=== PATIENT | female | born 1990 | race Caucasian/White ===

== ENCOUNTER 2025-01-07 10:06 | Emergency (ER) | payer OTHER, SELFPAY ==
[2025-01-07] VITALS (10 sets, daily range): BP systolic 106–125; BP diastolic 56–84; PULSE 54–102; RESP 11–22; TEMP 36.7; O2SAT 94–100
--- NOTE | ~2025-01-07 | XR_ITS ---
EXAMINATION: XR chest 2V DATE: 01/07/2025 11:48 INDICATION: Chest pain. TECHNIQUE: Frontal and lateral views of the chest were obtained. COMPARISON: None. FINDINGS: There is no pneumonia, pleural effusion, or pneumothorax. The heart size is normal. IMPRESSION: 1. No acute cardiopulmonary disease. Reviewed, dictated and finalized at location B.
--- NOTE | 2025-01-07 10:08 | ECG_ITS ---
Test Date: 2025-01-07 10:13:18 Measurements Intervals Anderson Rate: 102 P: 44 CO: 128 QRS: 50 QRSD: 90 T: 5 QT: 372 QTc: 485 Interpretive Statements SINUS TACHYCARDIA NONSPECIFIC T-WAVE ABNORMALITY ABNORMAL RHYTHM ECG No previous ECG available for comparison Electronically Signed On 01-07-2025 11:52:27 CDT by Rl Hernandez M.D.
[2025-01-07] MEDS: ASPIRIN 81 MG CHEWABLE TABLET 324 MG PO (10:54)
--- NOTE | 2025-01-07 10:56 | ED_ITS ---
HPI - Chest Pain General Chief Complaint: Chest Pain Stated Complaint: chest pressure Time Seen by Provider: 01/07/25 10:34 Source: patient Mode of arrival: ambulatory Limitations: no limitations History of Present Illness HPI narrative: This is a 34-year-old female that presents to the emergency department for chest pain, shortness of breath. Ongoing intermittently over the last week. Denies fever, cough, lower extremity edema. Related Data Allergies Allergy/AdvReac Type Severity Reaction Status Date / Time No Known Allergies Allergy Verified 01/07/25 10:58 Review of Systems 2 Review of Systems: CONSTITUTIONAL: Denies fever CARDIOVASCULAR: Reports chest pain RESPIRATORY: Reports dyspnea. All systems reviewed & are unremarkable except as noted in HPI and below PMFSH Past Medical History Medical History Allergies Gestational diabetes Surgical History Surgical History Delivery by section of full-term infant H/O eye surgery Family History Family History Father Depression Sibling Depression Grandparent Asthma Hypertension Cerebrovascular accident Alcoholism Cancer of unknown origin Social History Social History Smoking status: Never smoker Alcohol intake: current Drinks per week: 3 Lack of Transportation: No Lack of Food: Never True Current Housing: I Have Housing Concerned About Future Housing: No Difficulty Paying Gas/Electric Bills: No Difficulty Paying for Meds: No Currently Unemployed: No Education: Master's Degree or Higher Difficulty w/ Childcare or Family Care: No Living arrangements: with family Occupation/Education: occupation Spiritual care concerns: No Agree to blood products: Yes Exam 2 Narrative: GENERAL: Well-appearing, well-nourished, and in no acute distress. HEAD: Normocephalic, atraumatic. EYES: EOMI. CHEST: Clear to auscultation. No respiratory distress. No wheezes rales or rhonchi HEART: Regular rate and rhythm. No murmur heard. Normal peripheral pulses. EXTREMITIES: Normal range of motion. No edema. SKIN: Warm, dry, no rash. NEURO: No focal deficits. Alert and oriented x3. PSYCH: Normal mood and affect Course Course Emergency Course: Patient updated on her workup. Resting comfortably Vital Signs Vital signs: Vital Signs Temperature 98.0 F 01/07/25 10:14 Pulse Rate 102 H 01/07/25 10:14 Respiratory Rate 18 01/07/25 10:14 Blood Pressure 125/84 01/07/25 10:14 Pulse Oximetry 98 01/07/25 10:14 Temperature 98.1 F 01/07/25 11:01 Pulse Rate 56 L 01/07/25 12:30 Respiratory Rate 11 L 01/07/25 12:30 Blood Pressure 106/66 01/07/25 11:31 Pulse Oximetry 100 01/07/25 12:30 Oxygen Delivery Room Air 01/07/25 11:00 MDM - Chest Pain MDM Narrative Medical decision making narrative: Patient presents the emergency department for chest pain. Ongoing intermittently over the last week. Tachycardic upon arrival, this normalized without intervention. CBC and metabolic panel without concerning findings. EKG without acute ST changes and baseline and 3 hour troponin are negative. D-dimer is not elevated. Chest x-ray without acute cardiopulmonary abnormality. Heart score is 1. Patient updated on her workup. Resting comfortably. She is to follow up with PCP. She was given warnings to return to the ER Differential Diagnosis Differential diagnosis: Likely stable angina, atypical chest pain, costochondritis and other (pneumonia, PE) Lab Data Attestation: I reviewed the patient's lab results. 01/07/25 10:57 01/07/25 10:57 Labs: Lab Results 01/07/25 01/07/25 Range/Units 10:57 12:59 WBC 6.1 (4.5-10.0) K/mm3 RBC 4.74 (4.2-5.4) M/mm3 Hgb 14.0 (12.0-15.0) g/dL Hct 42.1 (37.0-47.0) % MCV 88.8 (80-100) fl MCH 29.5 (26-34) pg MCHC 33.3 (32-36) g/dl RDW 12.8 (11.5-14.5) % Plt Count 209 (150-375) k/mm3 MPV 10.0 (7.4-10.4) fl Immature Gran % (Auto) 0.2 (0-0.5) % Neut % (Auto) 56.1 (45.5-73.1) % Lymph % (Auto) 33.7 (18.3-44.2) % Brown % (Auto) 7.3 (2.6-8.5) % Eos % (Auto) 1.7 (0-4.4) % Baso % (Auto) 1.0 (0.2-1.2) % Lymph # (Auto) 2.04 (0.9-3.2) K/mm3 Brown # (Auto) 0.4 (0.1-0.6) K/mm3 Eos # (Auto) 0.1 (0-0.3) K/mm3 Baso # (Auto) 0.1 (0.0-0.1) K/mm3 Abs Immat Gran (auto) 0.01 (0.00-0.031) K/mm3 Absolute Neuts (auto) 3.4 (1.3-6.7) K/mm3 Absolute Nucleated RBC 0.000 (0.0-0.012) K/mm3 Nucleated RBC % 0.0 (0.0-0.2) % PT 12.7 (11.1-14.7) Seconds INR 0.9 APTT 24.4 (22.3-36.8) Seconds D-Dimer < 0.27 (<0.48) ug/mL Sodium 140 (137-145) mmol/L Potassium 4.4 (3.4-5.0) mmol/L Chloride 106 (98-107) mmol/L Carbon Dioxide 25 (22-30) mmol/L Anion Gap 9 (4-12) mmol/L BUN 10 (7-17) mg/dL Creatinine 0.74 (0.7-1.0) mg/dL Estim Creat Clear Calc 101 ml/min Estimated GFR > 60 (59 - ) Glucose 91 (65-110) mg/dL Calcium 9.3 (8.4-10.2) mg/dL Total Bilirubin 0.3 (0.2-1.3) mg/dL AST 26 (14-36) U/L ALT 35 (6-35) U/L Alkaline Phosphatase 50 (38-126) U/L Troponin I < 0.012 < 0.012 (0.000-0.034) ng/mL Total Protein 8.0 (6.3-8.2) g/dL Albumin 4.5 (3.5-5.1) g/dL Lipase 99 (23-300) U/L Imaging Data Radiologist's impression: ITS Impressions Chest X-Ray 01/07/25 11:51 IMPRESSION: 1. No acute cardiopulmonary disease. ECG Data EKG #1: ECG completion date: 01/07/25 EKG Interpretation: tachycardia, sinus rhythm, no ST changes and normal QT Critical Care Time Critical Care Time Critical Care Time: No Discharge Plan Discharge Clinical Impression: Chest pain Qualifiers: Chest pain type: unspecified Qualified Code(s): R07.9 - Chest pain, unspecified Patient Disposition: Home, Self-Care Condition: Stable Instructions: Chest Pain (ED) Additional Instructions: Return to the emergency department if you experience fever, worsening chest pain, shortness of breath, abdominal pain with nausea and vomiting, weakness, numbness, or any other symptoms that are concerning to you. Follow up with your primary care doctor Patient Language: Romanian Prescriptions: No Action amoxicillin-pot clavulanate [Augmentin] 500-125 mg tablet 1 tablet PO TID Qty: 21 0RF fluticasone furoate 27.5 mcg/actuation spray,suspension 2 spray intranasal DAILY Qty: 1 0RF Rx Instructions: into each nostril Follow-up/Referrals: Sameera,SAI Mei [Primary Care Provider] - Quality HEART score for chest pain patients History: slightly suspicious ECG: normal Age: < or = to 45 years Risk factors: 1 or 2 risk factors Troponin: < or = to 1x normal limit Heart score: 1
[2025-01-07 11:10] LABS: Basophils Absolute Auto 0.1 K/mm3 (0.0-0.1); Eosinophils Absolute Auto 0.1 K/mm3 (0-0.3); Eosinophils Percent Auto 1.7 % (0-4.4); Hematocrit 42.1 % (37.0-47.0); Immature Granulocyte Absolute 0.01 K/mm3 (0.00-0.031); Immature Granulocyte Percent A 0.2 % (0-0.5); Lymphocytes Absolute Auto 2.04 K/mm3 (0.9-3.2); Lymphocytes Percent Auto 33.7 % (18.3-44.2); Mean Corpuscular HGB Conc 33.3 g/dl (32-36); Mean Corpuscular Hemoglobin 29.5 pg (26-34); Mean Corpuscular Volume 88.8 fl (80-100); Monocytes Absolute Auto 0.4 K/mm3 (0.1-0.6); Monocytes Percent Auto 7.3 % (2.6-8.5); Neutrophils Absolute Auto 3.4 K/mm3 (1.3-6.7); Neutrophils Percent Auto 56.1 % (45.5-73.1); Platelet Count Result 209 k/mm3 (150-375); Red Blood Count 4.74 M/mm3 (4.2-5.4); Red Cell Distribution Width 12.8 % (11.5-14.5); White Blood Count 6.1 K/mm3 (4.5-10.0)
[2025-01-07 11:20] LABS: Alanine Aminotransferase 35 U/L (6-35); Albumin Level 4.5 g/dL (3.5-5.1); Alkaline Phosphatase 50 U/L (38-126); Anion Gap 9 mmol/L (4-12); Aspartate Amino Transferase 26 U/L (14-36); Bilirubin,Total 0.3 mg/dL (0.2-1.3); Blood Urea Nitrogen 10 mg/dL (7-17); Calcium 9.3 mg/dL (8.4-10.2); Carbon Dioxide 25 mmol/L (22-30); Chloride 106 mmol/L (98-107); Estimated CRCL calculation 101 ml/min; Estimated Glomerular Filt Rate > 60; Glucose 91 mg/dL (65-110); Lipase 99 U/L (23-300); Potassium 4.4 mmol/L (3.4-5.0); Sodium 140 mmol/L (137-145)
[2025-01-07 11:23] LABS: INR 0.9; Prothrombin Time 12.7 Seconds (11.1-14.7)
[2025-01-07 11:24] LABS: Partial Thromboplastin Time 24.4 Seconds (22.3-36.8)
[2025-01-07 11:32] LABS: Troponin I < 0.012 ng/mL (0.000-0.034)
--- OUTSIDE RECORDS SUMMARY | 2025-01-07 11:48 | XMS_ITS | Data Portability ---
Author Organization [place] - [facility] - [facility] [place] Address [address] [place] [address] Assessment No assessment recorded. Plan of Treatment Reminders Order Date Submit Date Provider Last Modified By Organization Details Last Modified Time Details Appointments None recorded. Lab SARS CoV 2 RNA (COVID-19), QL, draw frame operator-PCR, respiratory specimen 2020 021 [facility], [address], [place], [address], 22:56:20 rapid SARS CoV 2 Ag, QL IA, respiratory specimen 2020 021 [facility], [address] [place], [address], 19:05:40 Referral None recorded. Procedures None recorded. Surgeries None recorded. Imaging None recorded. Medication Orders None recorded. Patient TargetsNo targets recorded. Patient Instructions Encounter Date Encounter Id Patient Instructions Last Modified By Organization Details Last Modified Time 01/29/2021 [id number] - Specimen for COVID-19 PCR test sent to lab. - For patients with exposure and/or symptoms: you are to be self quarantined until PCR results have been reported. - Keep in mind that IF you had a rapid COVID-19 test performed today due to exposure and/or symptoms, and that test is negative, you still must continue to quarantine until the PCR results have been reported. We are unable to rule-out COVID-19 with a rapid test. - If you have symptoms, stay hydrated and rest, use cool mist humidifier, and take [id number] Tylenol/acetamino phen as needed for fever/pain (follow instructions on medication packaging) - Wash hands frequently and avoid touching the face; wear a mask when in public or when around people who do not live in your household (masks should not be worn by children under 2 years of age, or anyone who has trouble breathing, is unconscious, incapacitated, or otherwise unable to remove the mask without assistance) - Go to the ER if you are experiencing difficulty breathing, coughing up blood, chest pain, fever not improved with Tylenol/acetamino phen, or any other concerning symptoms - If you test positive for COVID-19 via Rapid OR PCR, please quarantine for at least 10 days from the date of testing. - If you have been in close contact with someone who tested positive for COVID-19, you should quarantine for 2 weeks from your last date of contact with that person. [email or web address] Not available 01/29/2021 18:18:38 Reason for Referral None Reported. Results Created Date Observation Date Name Description Value Unit Range Abnormal Flag Note LastModifiedBy Organization Detail LastModifiedTime 01/30/20 21 01/29/2021 SARS CoV 2 RNA (COVI D-19) , QL, draw frame operator-P CR, respi rator y speci men [id number] CR Not Detect ed normal Not Available [facility] [address], [place], [address], 01/30/2021 22:56:20 01/30/20 21 01/29/2021 rapid SARS CoV 2 Ag, QL IA, respi rator y speci men Unknown Analyte Negati ve Not Available [facility] [address] [place], [address], 01/29/2021 18:19:55 Result Notes None recorded. Medical Equipment None Reported. Vitals Date Recorded Heart rate Oxygen saturation Oxygen saturation in Arterial blood by Pulse oximetry Body temperature Provider Name and Address Organization Details Last Updated DateTime 01/29/2021 67 /min 98 % 98 % 97.4 [degF] Elda WEBSTER - [facility] 18:18:37 Social History None recorded. Functional Status None recorded. Mental Status None recorded. Family History Nothing Reported. Medical History No medical history recorded. Gynecological HistoryNo gynecological history recorded. Obstetrics History GPAL:G 0 P 0 0 0 0 Past Encounters Encounter ID Performer Location Encounter Start Date Encounter Closed Date Diagnosis/Indication Diagnosis SNOMED-CT Code Diagnosis ICD10 Code Diagnosis Note [id number] [facility] [address] [place] [address] 01/29/2021 18:09:23 02/10/2021 01:19:53 Suspected COVID-19 558972530 Z03.818 Exposure t o SARS-CoV-2 485871044 Z20.828 Health Concerns Section Related Observation LastModified by Organization Detai ls LastModified Time None Recorded Concern Status LastModified by Organization Details LastModified Time None Recorded Advance Directives Directive None Recorded Payers Encounter Date Sequence Insurance Name Policy Number Policy Toro Covered Member ID Toro Member ID Guarantor Name 01/29/2021 1 [facility] [employer]NAG[employer] - DEMETRICE Cifuentes [id number] Smita Cifuentes Notes Date Note Type Note Provider Name and Address Organization Details Recorded Time 01/29/2021 text/html Patient presents for rapid and PCR COVID-19 testing. Pt reports chills, cough and excessive fatigue for one day. Pt reports potential exposure/ Patient denies fevers, sore throat, SOB, chest tightness, myalgia, HAs, N/V/D, anosmia, ageusia, within the past 14 days. Exposure?: n No other active complaints reported. [facility] 01/29/2021 18:20:01 OBGyn Episode No OBEpisode recorded.
--- OUTSIDE RECORDS SUMMARY | 2025-01-07 11:48 | XMS_ITS | Clinical Summary ---
Author Organization [address] Address [address] [place] [address] Care Team Providers Care Environmental Compliance Manager Name Role Phone Unknown, Notinfile Unavailable Unavailable Katie Brasher NP Primary Care Provider [phone] Allergies No known active allergies Medications calcium carbonate-vitam in D3 1500 mg (600 mg elemental) -200 units per tablet Take 1 tablet by mouth daily Active omega-3 fatty acids-fish oil 300-1,000 mg capsule Take 2 capsules (2 g total) by mouth daily Active cyanocobalamin (Vitamin B-12) 1,000 mcg sublingual tablet Take 1 tablet (1,000 mcg total) by mouth daily Active 25/iron fum/folic/dha (-1 ORAL) Take by mouth Active levonorgestreL (MIRENA) IUD 1 each by intrauterine route once Mirena [facility]: 42751-612-45 Lot:[id number] Exp: Dec 2024 3 01/26/20 31 Active multivitamin tabletIndicatio ns:Vitamin Deficiency Prevention Take 1 tablet by mouth Active semaglutide (Wegovy) 1 mg/0.5 mL auto-injectorIn dications:Weigh t Loss Management for Obese Patient (BMI >= 30) Inject 0.5 mL (1 mg total) under the skin every 7 days 2 mL 4 Active Additional Information Patient not taking.Reported on 01/04/2025 Active Problems Problem Noted Date Diagnosed Date History of gestational diabetes 06/29/2024 Assessment & Plan (07/05/2024 8:46 AM CDT): This has been diet controlled. We will recheck hemoglobin A1c with labs today Annual physical exam 06/29/2024 Assessment & Plan (07/05/2024 8:46 AM CDT): -Recommended: Healthy diet. Avoiding junk food/fast food. -30 minutes of exercise most days of the week. Increase to 45 minutes for weight loss. Health Maintenance reviewed - yearly labs ordered. -Influenza vaccine every year Recommend: - Topic Date Due Varicella Vaccines (1 of 2 - 13+ 2-dose series) Never done -F/u in 1 year for Annual PE or sooner if needed Class 2 obesity due to exces s calories without serious comorbidity with body mass index (BMI) of 35.0 to 35.9 in adult 06/29/2024 Assessment & Plan (10/12/2024 8:36 PM FURNACE HELPER): She was not aware that wegovy had a coupon to use with her insurance. If that brings her co-pay down she will go ahead and try it again. Will increase to 1 mg at next refill. She will send a [employer] message left he has no how it goes Assessment & Plan (07/05/2024 8:48 AM CDT): Today we discussed weight loss medications wegovy. We will try for prior auth for wegovy. I went over injection methods with her. Will have her return in 1 month for continued weight loss counseling, weigh in and f/u I gave her 1 by sample Wegovy 0.25 mg weekly which equals a one-month supply with with teaching done on administration. She believes that she had seen a letter from her insurance stating that they will cover these medications. Dichorionic diamniotic twin in second trimester 09/27/2022 Resolved Problems Problem Noted Date Diagnosed Date Resolved Date premature rupture of membranes in third trimester 12/16/2022 06/29/2024 Short cervix affecting 09/27/2022 06/29/2024 Encounters Date Type Department Care Team Description 01/04/2025 3:00 PM FURNACE HELPER Office Visit [facility] Convenient Care at [address] [address] Kassy Alvarez, RADHA Shortness of breath (Primary Dx); Sensation of chest pressure from Last 3 Months Immunizations Immunization Administration Dates Next Due Influenza, Quadrivalent, Spl it, Preservative Free, Intramuscular 10/06/2023,08/13/2022,07/07/2021 Influenza, Trivalent, Preser vative Free, Intramuscular 07/24/2024 Influenza, Unspecified 06/29/2024(Deferr ed: Patient Refused),10/31/2023(Deferred: Patient Refused) Tdap 12/09/2022,08/31/2021 Typhoid Inactivated 09/23/2021 Yellow Fever 09/30/2021 Surgical History Surgery Date Site/Laterality Comments EYE SURGERY Medical History Medical History Date Comments Short cervix Family History Medical History Relation Name Comments No Known Problems Father Colon cancer Maternal Grandmother late 60 s No Known Problems Mother Lung cancer Paternal Grandfather No Known Problems Sister Breast cancer Neg Hx Endometrial cancer Neg Hx Ovarian cancer Neg Hx Pancreatic cancer Neg Hx Relation Name Status Comments Father Alive Maternal Grandfather Maternal Grandmother Mother Alive Paternal Grandfather Paternal Grandmother Sister Alive Social History Tobacco Use Types Packs/Day Years Used Date Smoking Tobacco: Never Passive Smoke Exposure: Never Smokeless Tobacco: Never Tobacco Cessation:Counseling Given: Not Answered AUDIT-C Answer Date Recorded Q1: How often do you have a drink containing alcohol? Never 09/27/2022 Q2: How many drinks containi ng alcohol do you have on a typical day when you are drinking? Patient does not drink Q3: How often do you have si x or more drinks on one occasion? Never 09/27/2022 PHQ-2 Answer Date Recorded PHQ-2 Total Score (If total score is 3 or more points, staff should administer the PHQ-9) 0 06/29/2024 [place] Depression Scale Answer Date Recorded [place] Depression Scale Total 8 12/30/2022 The thought of harming myself has occurred to me . Never 12/30/2022 Personal Safety Answer Date Recorded Getting School Help Needed Denies 10/12 Comments No Sex and Gender Information Value Date Recorded Sex Assigned at Not on file Legal Sex Female 7:51 AM FURNACE HELPER Gender Identity Female 11/14/2024 3:07 PM FURNACE HELPER Sexual Orientation Straight 11/14/2024 3: 07 PM FURNACE HELPER Obstetrics History Para Term AB IAB SAB Ectopic Multiple Livin g Live Births 1 1 0 1 0 0 0 0 1 2 2 Date Outcome GA Total Labor Labor/2nd/3rd Weight Sex Type Anes PTL Meme A1 A5 Name Clin 2022 33w 6d 0h 02m 0h 02m 2.68 kg (5 lb 14.5 oz) M C-Sec tion Spinal Y Livin g 8 9 CHASTITY GERARDO, Sole Kaufman MD Complications:None Delivery Location:[facility] ([facility]) Comments:See Dr. Haley 's note 2022 33w 6d 0h 02m 0h 02m 2.2 kg (4 lb 13.6 oz) F C-Sec tion Spinal Y Livin g 7 8 YOHAN BRUNOWale IRCARLOS chavez, Sole Kaufman MD Complications:None Delivery Location:[facility] ([facility]) Comments:See Dr. Haley 's note Comments Mirena IUD since February 2015. 7 years in February 2022 No history of abnormal paps or STIs Currently sexually active Wanting to potentially conceive in the next year Monthly menses prior to IUD Last Filed Vital Signs Vital Sign Reading Time Taken Comments Blood Pressure 138/71 01/04/2025 3:00 PM FURNACE HELPER Pulse 98 01/04/2025 3:15 PM FURNACE HELPER Temperature 36.8 C (98.2 F) 01/04/2025 3:00 PM FURNACE HELPER Respiratory Rate 16 01/04/2025 3:00 PM FURNACE HELPER Oxygen Saturation 98% 01/04/2025 3:15 PM FURNACE HELPER Inhaled Oxygen Concentration - - Weight 87.5 kg (193 lb) 01/04/2025 3:00 PM FURNACE HELPER Height 157.5 cm (5' 2 ) 01/04/2025 3:00 PM FURNACE HELPER Body Mass Index 35.3 01/04/2025 3:00 PM FURNACE HELPER Plan of Treatment Health Maintenance Due Date Last Done Comments Varicella Vaccines (1 of 2 - 13+ 2-dose series) 2004 Hepatitis B Screening 2009 Cervical Cancer Screening 12/31/2022 12/31/2021 Depression Screening 06/29/2025 06/29/2024, 12/30/2022, 09/27/2022 Regular Well Visit/Exam 18-64 07/27/2025 07/27/2024, 06/29/2024, 12/31/2021 DTaP/Tdap/Td Vaccine (3 - Td or Tdap) 12/09/2032 12/09/2022, 08/31/2021 Hepatitis C Screening Completed 06/07/2022 Influenza Vaccine Completed 07/24/2024, , 08/13/2022, Additional history exists Covid-19 Vaccine Completed 08/24/2024, 04/2023, 08/31/2022, Additional history exists HPV Vaccines Aged Out No longer eligi ble based on patient's age to complete this topic Pneumococcal vaccine <65 Aged Out No longer eligible based on patient's age to complete this topic Procedures Procedure Name Priority Date/Time Associated Diagnosis Comments HEPATITIS C ANTIBODY Routine 06/07/2022 3:37 PM CDT Early stage of PAP AND HIGH RISK HPV, REFLEX TO GENOTYPING Routine 12/31/2021 1:26 PM FURNACE HELPER Screening for cervical cancer from Last 3 Months or Most Recently Relevant to Health Maintenance Results * Hepatitis C antibody (06/07/2022 3:37 PM CDT) Hep C Ab 0.2 0.0 - 0.9 s/co ratio [facility] - Comment: Negative: < 0.8 Indeterminate: 0.8 - 0.9 Positive: > 0.9 HCV antibody alone does not differentiate between previous resolved infection and active infection. The CDC and current clinical guidelines recommend that a positive HCV antibody result be followed up with an HCV RNA test to support the diagnosis of acute HCV infection. [facility] offers Hepatitis C Virus (HCV) RNA, Diagnosis, JUDY (307596) and Hepatitis C Virus (HCV) Antibody with reflex to Quantitative Real-time PCR ([id number]). Blood specimen (specimen) 06/07/2022 3:37 PM CDT 06/07/2022 Narrative [facility] - 06/08/2022 8:15 AM CDT Performed at: 01 - [address] [id number] Visual Merchandiser: Chapo Ibrahim PhD, Phone: [phone] Mamta Amaya MD LAB MICROBIOLOGY - GEN ERAL ORDERABLES Final Result [facility] - 01 * Pap and High Risk HPV, reflex to Genotyping (12/31/2021 1:26 PM FURNACE HELPER) Thin prep (Pap test) 12/31/2021 1:26 PM FURNACE HELPER 01/04/2022 2:02 PM FURNACE HELPER Narrative PATHOLOGY [facility] - 01/07/2022 10:16 AM FURNACE HELPER EPIC results best viewed via link to PDF [address] [address] Tele: Kirstie Hampton MD - Cardiopulmonary Supervisor CYTOLOGY REPORT Note to Patients: This report may contain a detailed description of human tissue sent by a health care provider to the laboratory for pathologic evaluation. The content of this report is essential for diagnosis and may provide important critical findings. This information may be unfamiliar to patients to review without a medical professional present. It is advised that the patient review this report in the presence of a health care provider who can answer questions and explain the details. Patient Name: SMITA GERARDO Address: [address] [place] [address] Gender: F : 1990 (Age: 31) Service: Location: [facility] #: [id number] Patient Type: [facility] [place] SPECIMEN Taken: 12/31/2021 Reported: 01/07/2022 Physician(s): Mamta Amaya MD FINAL DIAGNOSIS: Specimen Type: - ThinPrep Pap and HPV w/ reflex Genotyping Statement of Specimen Adequacy: Source: Cervical/Endocervical - Satisfactory for interpretation - Endocervical /Transformation Zone component present - Case screened using computer assisted imaging technology General Categorization: - Negative for intraepithelial lesion or malignancy cad/01/07/2022 10:16 Charito Rodas M.S., MAGDY (ASCP) Report Reviewed and Electronically Signed By Charito Rodas M.S., MAGDY (ASCP) Clerical Data Follow A; G0145 DIAGNOSIS COMMENT: Ancillary Testing: HPV High Risk Group (16, 18, 31, 33, 35, 39, 45, 51, 52, 56, 58, 59, 66 and 68) - Not Detected Reference Range: Not Detected This test was performed using the KALEB 4800 CLINICAL DIAGNOSIS AND HISTORY Last Menstrual Period: IUD IN PLACE REPORT IMAGES AND/OR SCANNED DOCUMENTS ONLY VIEWABLE IN PDF FORMAT The Pap test is a screening test used to aid in the detection of cervical cancer and its precursors. It should not be the sole means by which malignant and premalignant lesions are diagnosed. Both false negative and false positive results may occur. It also has poor sensitivity for the detection of endometrial lesions and should not be used to evaluate suspected endometrial abnormalities. For these reasons it is most important to obtain Pap tests at regular intervals, as recommended by your physician or nurse practitioner. Mamta Amaya MD LAB CYTOLOGY ORDERABLE S Final Result PATHOLOGY [facility] Laboratory Receiving [address] [place] [address] from Last 3 Months or Most Recently Relevant to Health Maintenance [place] [place] [address] [employer] OPTIONS PPO [facility] [id number] Advance Directives For more information, please contact: [phone] * Full Code (Latest Code Status on File) Date Activated Date Inactivated Comments 12/17/2022 12:12 AM 12/20/2022 5:56 PM * Full Code Date Activated Date Inactivated Comments 12/16/2022 8:46 PM 12/17/2022 12:12 AM Full CPR in case of cardiopulmonary arrest Care Teams Environmental Compliance Manager Relationship Specialty Start Date End Date Katie Brasher NP PCP - General Family Medicine 06/29/24 Unknown, Notinfile 10/22/21
--- OUTSIDE RECORDS SUMMARY | 2025-01-07 11:48 | XMS_ITS | Referral Summary ---
Author Organization [address] Address [address] [place] [address] Care Team Providers Care Fish Pitcher Name Role Phone Unknown, Notinfile Unavailable Unavailable Katie Brasher NP Primary Care Provider [phone] Encounters Date Type Department Care Team Description 01/04/2025 3:00 PM RESERVATIONS SALES AGENT Office Visit [facility] Medical [facility] Convenient Care at [address] [address] Kassy Alvarez NP Shortness of breath (Primary Dx); Sensation of chest pressure from Last 3 Months Allergies No known active allergies Medications calcium [...] 1 each by intrauterine route once Mirena [facility]: [id number] Lot:[id number] Exp: Dec 2024 3 01/26/20 31 Active multivitamin tabletIndicatio ns:Vitamin Deficiency Prevention Take 1 tablet by mouth Active semaglutide (Wegovy) 1 mg/0.5 mL auto-injectorIn dications:Weigh t Loss Management for Obese Patient (BMI >= 30) Inject 0.5 mL (1 mg total) under the skin every 7 days 2 mL Active Additional Information Patient not taking.Reported on [...] 06/29/2024 Assessment & Plan (10/12/2024 8:36 PM RESERVATIONS SALES AGENT): She was not aware that wegovy had a coupon to use with her insurance. If that brings her co-pay down she will go ahead and try it again. Will increase to 1 mg at next refill. She will send a [employer] message left he has no how it [...] 12/16/2022 06/29/2024 Short cervix affecting 09/27/2022 06/29/2024 Immunizations Immunization Administration Dates Next Due Influenza, Quadrivalent, Spl it, Preservative Free, Intramuscular 10/06/2023,08/13/2022,07/07/2021 Influenza, Trivalent, Preser vative Free, Intramuscular 07/24/2024 Influenza, Unspecified 06/29/2024(Deferr ed: Patient Refused),10/31/2023(Deferred: Patient Refused) Tdap 12/09/2022,08/31/2021 Typhoid Inactivated 09/23/2021 Yellow Fever 09/30/2021 Social History Tobacco Use Types Packs/Day Years [...] staff should administer the PHQ-9) 0 06/29/2024 [place] Depression Scale Answer Date Recorded [place] Depression Scale Total 8 12/30/2022 The thought of harming myself has occurred to me . Never 12/30/2022 Personal Safety Answer Date Recorded Getting School Help Needed Denies 10/12 Comments No Sex and Gender Information Value Date Recorded Sex Assigned at Not on file Legal Sex Female 7:51 AM RESERVATIONS SALES AGENT Gender Identity Female 11/14/2024 3:07 PM RESERVATIONS SALES AGENT Sexual Orientation Straight 11/14/2024 3: 07 PM RESERVATIONS SALES AGENT Last Filed Vital Signs Vital Sign Reading Time Taken Comments Blood Pressure 138/71 01/04/2025 3:00 PM RESERVATIONS SALES AGENT Pulse 98 01/04/2025 3:15 PM RESERVATIONS SALES AGENT Temperature 36.8 C (98.2 F) 01/04/2025 3:00 PM RESERVATIONS SALES AGENT Respiratory Rate 16 01/04/2025 3:00 PM RESERVATIONS SALES AGENT Oxygen Saturation 98% 01/04/2025 3:15 PM RESERVATIONS SALES AGENT Inhaled Oxygen Concentration - - Weight 87.5 kg (193 lb) 01/04/2025 3:00 PM RESERVATIONS SALES AGENT Height 157.5 cm (5' 2 ) 01/04/2025 3:00 PM RESERVATIONS SALES AGENT Body Mass Index 35.3 01/04/2025 3:00 PM RESERVATIONS SALES AGENT Plan of Treatment Not on file Procedures Procedure Name Priority Date/Time Associated Diagnosis Comments HEPATITIS C ANTIBODY Routine 06/07/2022 3:37 PM CDT Early stage of PAP AND HIGH RISK HPV, REFLEX TO GENOTYPING Routine 12/31/2021 1:26 PM RESERVATIONS SALES AGENT Screening for cervical cancer from Last 3 Months or Most Recently Relevant to Health Maintenance Results * Hepatitis C antibody (06/07/2022 3:37 PM CDT) Hep C Ab 0.2 0.0 - 0.9 s/co ratio [facility] - Comment: Negative: < 0.8 Indeterminate: 0.8 - 0.9 Positive: > 0.9 HCV antibody alone does not differentiate between previous resolved infection and active infection. The CDC and current clinical guidelines recommend that a positive HCV antibody result be followed up with an HCV RNA test to support the diagnosis of acute HCV infection. [facility] offers Hepatitis C Virus (HCV) RNA, Diagnosis, JUDY (956162) and Hepatitis C Virus (HCV) Antibody with reflex to Quantitative Real-time PCR ([id number]). Blood specimen (specimen) 06/07/2022 3:37 PM CDT 06/07/2022 Narrative [facility] - 06/08/2022 8:15 AM CDT Performed at: 01 - [address] [id number] Telecommunications Analyst: Chapo Ibrahim PhD, Phone: [phone] us Mamta Amaya MD LAB MICROBIOLOGY - GEN ERAL ORDERABLES Final Result [facility] - * Pap and High Risk HPV, reflex to Genotyping (12/31/2021 1:26 PM RESERVATIONS SALES AGENT) Thin prep (Pap test) 12/31/2021 1:26 PM RESERVATIONS SALES AGENT 01/04/2022 2:02 PM RESERVATIONS SALES AGENT Narrative PATHOLOGY [facility] - 01/07/2022 10:16 AM RESERVATIONS SALES AGENT EPIC results best viewed via link to PDF [address] [address] Tele: Kirstie Hampton MD - Dishwasher Busser CYTOLOGY REPORT Note to Patients: This report [...] questions and explain the details. Patient Name: ADEEL ALMANZAR Address: [address] [place] [address] Gender: F : 1990 (Age: 31) Service: Location: Hospital #: [id number] Patient Type: [facility] SPECIMEN Taken: 12/31/2021 Reported: 01/07/2022 Physician(s): Mamta [...] recommended by your physician or nurse practitioner. us Mamta Amaya MD LAB CYTOLOGY ORDERABLE S Final Result PATHOLOGY [facility] Laboratory Receiving [address] [place] [address] from Last 3 Months or Most Recently Relevant to Health Maintenance Insurance [facility] OPTIONS PPO [facility] HMO/PPO Address: [id number] [place] [address] [facility] [id number] Advance Directives For more information, please contact: [phone] * Full Code (Latest Code Status on File) Date Activated Date Inactivated Comments 12/17/2022 12:12 AM 12/20/2022 5:56 PM * Full Code Date Activated Date Inactivated Comments 12/16/2022 8:46 PM 12/17/2022 12:12 AM Full CPR in case of cardiopulmonary arrest Care Teams Fish Pitcher Relationship Specialty Start Date End Date Katie Brasher NP PCP - General Family Medicine 06/29/24 Unknown, Notinfile 10/22/21
[2025-01-07 12:13] LABS: D Dimer < 0.27 ug/mL (<0.48)
--- OUTSIDE RECORDS SUMMARY | 2025-01-07 12:40 | XMS_ITS | Referral Summary ---
Author Organization [address] Address [address] [place] [address] Care Team Providers Care Magneto Specialist Name Role Phone Unknown, Notinfile Unavailable Unavailable Katie Brasher NP Primary Care Provider [phone] Encounters Date Type Department Care Team Description 01/04/2025 3:00 PM SENIOR QUALITY TECHNICIAN Office Visit [facility] Medical Group Convenient Care at [address] [address] Kassy Alvarez NP Shortness of [...] each by intrauterine route once Mirena [facility]: [id number] Exp: Dec 2024 3 01/26/20 31 Active [...] 06/29/2024 Assessment & Plan (10/12/2024 8:36 PM SENIOR QUALITY TECHNICIAN): She was not aware that wegovy had a coupon to use with her insurance. If that brings her co-pay down she will go ahead and try it again. Will increase to 1 mg at next refill. She will send a [employer] message left he has no how it [...] staff should administer the PHQ-9) 0 06/29/2024 [place] Depression Scale Answer Date Recorded [place] Depression Scale Total 8 12/30/2022 The thought of harming myself has occurred to me . Never 12/30/2022 Personal Safety Answer Date Recorded Getting School Help Needed Denies 10/12 Comments No Sex and Gender Information Value Date Recorded Sex Assigned at Not on file Legal Sex Female 7:51 AM SENIOR QUALITY TECHNICIAN Gender Identity Female 11/14/2024 3:07 PM SENIOR QUALITY TECHNICIAN Sexual Orientation Straight 11/14/2024 3: 07 PM SENIOR QUALITY TECHNICIAN Last Filed Vital Signs Vital Sign Reading Time Taken Comments Blood Pressure 138/71 01/04/2025 3:00 PM SENIOR QUALITY TECHNICIAN Pulse 98 01/04/2025 3:15 PM SENIOR QUALITY TECHNICIAN Temperature 36.8 C (98.2 F) 01/04/2025 3:00 PM SENIOR QUALITY TECHNICIAN Respiratory Rate 16 01/04/2025 3:00 PM SENIOR QUALITY TECHNICIAN Oxygen Saturation 98% 01/04/2025 3:15 PM SENIOR QUALITY TECHNICIAN Inhaled Oxygen Concentration - - Weight 87.5 kg (193 lb) 01/04/2025 3:00 PM SENIOR QUALITY TECHNICIAN Height 157.5 cm (5' 2 ) 01/04/2025 3:00 PM SENIOR QUALITY TECHNICIAN Body Mass Index 35.3 01/04/2025 3:00 PM SENIOR QUALITY TECHNICIAN Plan of Treatment Not on file Procedures Procedure Name Priority Date/Time Associated Diagnosis Comments HEPATITIS C ANTIBODY Routine 06/07/2022 3:37 PM CDT Early stage of PAP AND HIGH RISK HPV, REFLEX TO GENOTYPING Routine 12/31/2021 1:26 PM SENIOR QUALITY TECHNICIAN Screening for cervical cancer from Last 3 Months or Most Recently Relevant to Health Maintenance Results * Hepatitis C antibody (06/07/2022 3:37 PM CDT) Hep C Ab 0.2 0.0 - 0.9 s/co ratio [facility] - Comment: Negative: < 0.8 Indeterminate: 0.8 - 0.9 Positive: > 0.9 HCV antibody alone does not differentiate between previous resolved infection and active infection. The CDC and current clinical guidelines recommend that a positive HCV antibody result be followed up with an HCV RNA test to support the diagnosis of acute HCV infection. [facility] offers Hepatitis C Virus (HCV) RNA, Diagnosis, JUDY ([id number]) and Hepatitis C Virus (HCV) Antibody with reflex to Quantitative Real-time PCR ([id number]). Blood specimen (specimen) 06/07/2022 3:37 PM CDT 06/07/2022 Narrative [facility] - 06/08/2022 8:15 AM CDT Performed at: 01 - [address] [id number] Manager Lpn: Chapo Ibrahim PhD, Phone: [phone] us Mamta Amaya MD LAB MICROBIOLOGY - GEN ERAL ORDERABLES Final Result [facility] - * Pap and High Risk HPV, reflex to Genotyping (12/31/2021 1:26 PM SENIOR QUALITY TECHNICIAN) Thin prep (Pap test) 12/31/2021 1:26 PM SENIOR QUALITY TECHNICIAN 01/04/2022 2:02 PM SENIOR QUALITY TECHNICIAN Narrative PATHOLOGY [facility] - 01/07/2022 10:16 AM SENIOR QUALITY TECHNICIAN EPIC results best viewed via link to PDF [address] [address] Tele: Kirstie Hampton MD - Stockholder CYTOLOGY REPORT Note to Patients: This report [...] the details. Patient Name: ADEEL ALMANZAR Address: [address] [place] [address] Gender: F : 1990 (Age: 31) Service: Location: Hospital #: [id number] Patient Type: [facility] [place] SPECIMEN Taken: 12/31/2021 [...] LAB CYTOLOGY ORDERABLE S Final Result PATHOLOGY [facility] Laboratory Receiving [address] [place] [address] from Last 3 Months or Most Recently Relevant to Health Maintenance Insurance [facility] OPTIONS PPO [facility] [id number] Advance Directives For more information, please contact: [phone] * Full Code (Latest Code Status on File) Date Activated Date Inactivated Comments 12/17/2022 12:12 AM 12/20/2022 5:56 PM * Full Code Date Activated Date Inactivated Comments 12/16/2022 8:46 PM 12/17/2022 12:12 AM Full CPR in case of cardiopulmonary arrest Care Teams Magneto Specialist Relationship Specialty Start Date End Date Katie Brasher NP PCP - General Family Medicine 06/29/24 Unknown, Notinfile 10/22/21
--- OUTSIDE RECORDS SUMMARY | 2025-01-07 12:40 | XMS_ITS | Clinical Summary ---
Author Organization [address] Address [address] [place] [id number] Care Team Providers Care Ropewalk Rope Maker Name Role Phone Unknown, Notinfile Unavailable Unavailable Katie Brasher NP Primary Care Provider [phone] Allergies No known active allergies Medications calcium [...] 1 each by intrauterine route once Mirena [facility]: [id number] Lot:[id number] Exp: Dec 2024 3 01/26/20 31 Active [...] 06/29/2024 Assessment & Plan (10/12/2024 8:36 PM NAIL FEEDER): She was not aware that [employer] had a coupon to use with her insurance. If that brings her co-pay down she will go ahead and try it again. Will increase to 1 mg at next refill. She will send a [employer] message left he has no how it [...] Department Care Team Description 01/04/2025 3:00 PM NAIL FEEDER Office Visit [facility] at [address] [address] Kassy Alvarez, RADHA Shortness of [...] staff should administer the PHQ-9) 0 06/29/2024 Prescott Depression Scale Answer Date Recorded Prescott Depression Scale Total 8 12/30/2022 The thought of harming myself has occurred to me . Never 12/30/2022 Personal Safety Answer Date Recorded Getting School Help Needed Denies 10/12 Comments No Sex and Gender Information Value Date Recorded Sex Assigned at Not on file Legal Sex Female 7:51 AM NAIL FEEDER Gender Identity Female 11/14/2024 3:07 PM NAIL FEEDER Sexual Orientation Straight 11/14/2024 3: 07 PM NAIL FEEDER Obstetrics History Para Term AB IAB SAB [...] Kaufman MD Complications:None Delivery Location:This Facil ity ([facility]) Comments:See Dr. Haley 's note 2022 33w 6d 0h 02m 0h 02m 2.2 kg (4 lb 13.6 oz) F C-Sec tion Spinal Y Livin g 7 8 YOHAN BRUNOWale IRCARLOS chavez, Sole Kaufman MD Complications:None Delivery Location:This Facil ity ([facility]) Comments:See Dr. Haley 's note Comments Mirena IUD since February 2015. 7 years in February 2022 No history of abnormal paps or STIs Currently sexually active Wanting to potentially conceive in the next year Monthly menses prior to IUD Last Filed Vital Signs Vital Sign Reading Time Taken Comments Blood Pressure 138/71 01/04/2025 3:00 PM NAIL FEEDER Pulse 98 01/04/2025 3:15 PM NAIL FEEDER Temperature 36.8 C (98.2 F) 01/04/2025 3:00 PM NAIL FEEDER Respiratory Rate 16 01/04/2025 3:00 PM NAIL FEEDER Oxygen Saturation 98% 01/04/2025 3:15 PM NAIL FEEDER Inhaled Oxygen Concentration - - Weight 87.5 kg (193 lb) 01/04/2025 3:00 PM NAIL FEEDER Height 157.5 cm (5' 2 ) 01/04/2025 3:00 PM NAIL FEEDER Body Mass Index 35.3 01/04/2025 3:00 PM NAIL FEEDER Plan of Treatment Health Maintenance Due Date [...] REFLEX TO GENOTYPING Routine 12/31/2021 1:26 PM NAIL FEEDER Screening for cervical cancer from Last 3 [...] Hepatitis C Virus (HCV) RNA, Diagnosis, JUDY ([id number]) and Hepatitis C Virus (HCV) Antibody with reflex to Quantitative Real-time PCR ([id number]). Blood specimen (specimen) 06/07/2022 3:37 PM CDT 06/07/2022 Narrative [facility] - 06/08/2022 8:15 AM CDT Performed at: 01 - [address] [id number] Legal Adviser: Chapo Ibrahim PhD, Phone: [phone] Mamta Amaya MD LAB MICROBIOLOGY - GEN ERAL ORDERABLES Final Result [facility] - 01 * Pap and High Risk HPV, reflex to Genotyping (12/31/2021 1:26 PM NAIL FEEDER) Thin prep (Pap test) 12/31/2021 1:26 PM NAIL FEEDER 01/04/2022 2:02 PM NAIL FEEDER Narrative PATHOLOGY [facility] - 01/07/2022 10:16 AM NAIL FEEDER EPIC results best viewed via link to PDF [address] [address] Tele: Kirstie Hampton MD - Maintenance Shop Laborer CYTOLOGY REPORT Note to Patients: This report [...] the details. Patient Name: SMITA GERARDO Address: [address] [place] [address] Gender: F : 1990 (Age: 31) Service: Location: [facility] #: [id number] Patient Type: [facility] SPECIMEN Taken: 12/31/2021 Reported: 01/07/2022 Physician(s): Mamta [...] LAB CYTOLOGY ORDERABLE S Final Result PATHOLOGY [facility] Laboratory Receiving [address] [place] [address] from Last 3 Months or Most Recently Relevant to Health Maintenance [place] [address] [place] [address] [employer] PPO [facility] [id number] Advance Directives For more information, please contact: [phone] * Full Code (Latest Code Status on File) Date Activated Date Inactivated Comments 12/17/2022 12:12 AM 12/20/2022 5:56 PM * Full Code Date Activated Date Inactivated Comments 12/16/2022 8:46 PM 12/17/2022 12:12 AM Full CPR in case of cardiopulmonary arrest Care Teams Ropewalk Rope Maker Relationship Specialty Start Date End Date Katie Brasher NP PCP - General Family Medicine 06/29/24 Unknown, Notinfile 10/22/21
--- NOTE | 2025-01-07 13:26 | ECG_ITS ---
Test Date: 2025-01-07 13:30:47 Measurements Intervals [place] Rate: 61 P: 47 [place]: 154 QRS: 56 QRSD: 88 T: 29 QT: 418 QTc: 423 Interpretive Statements SINUS RHYTHM WITH SINUS ARRHYTHMIA Compared to ECG 01/07/2025 10:13:18 Sinus tachycardia no longer present T-wave abnormality no longer present Electronically Signed On 01-07-2025 14:04:32 CDT by Rl Hernandez M.D.
[2025-01-07 13:34] LABS: Troponin I < 0.012 ng/mL (0.000-0.034)
== END 2025-01-07 14:29 | disposition home or self-care (01) ==
PROVIDERS: Emergency Medicine; Emergency Provider Physician Assistant; PCP Nurse Practitioner Family
DX: R07.9 Chest pain, unspecified (principal); R94.31 Abnormal electrocardiogram [ECG] [EKG]; R00.0 Tachycardia, unspecified
CPT/HCPCS: 36415; 71046; 80053; 83690; 84484; 85025; 85380; 85610; 85730; 93005; 99284; A9270